=== PATIENT | male | born 1980 | race Caucasian/White ===

== ENCOUNTER 2016-08-24 15:11 | Emergency (ER) | payer OTHER, SELFPAY ==
[2016-08-24] MEDS ORDERED: Adacel (T-DAP) 0.5 ML VIAL ONE (15:17)
[2016-08-24] MEDS ORDERED: Ondansetron HCl/PF 4 MG/2 ML Vial ONE (15:17)
[2016-08-24 15:31] LABS: #Basophils 0.1 thou/uL (0.0-0.2); #Eosinphils 0.1 thou/uL (0.0-0.7); #Monocytes 0.7 thou/uL (0.11-0.59); #Neutrophils 4.4 thou/uL (1.40-6.50); %Basophils 0.9 % (0.0-1.0); %Eosinophils 0.7 % (0.0-10.0); %Lymphocytes 36.3 % (21.0-51.0); %Monocytes 8.5 % (0.0-10.0); %Neutrophils 53.7 % (42.0-75.0); Hemoglobin 14.6 g/dL (14.0-18.0); Mean Corpuscular HGB CONC 34.6 g/dL (32.0-36.0); Mean Corpuscular Volume 86.6 fl (80.0-94.0); Mean Platelet Volume 9.2 fL (7.4-10.4); Platelet Count 189 thou/uL (130-400); RBC Distribution Width 11.7 % (11.5-14.5); Red Blood Cell (RBC) Count 4.86 mill/uL (4.70-6.10); White Blood Cell (WBC) Count 8.2 thou/uL (4.8-10.8)
[2016-08-24 15:47] LABS: ALT (SGPT) 17 U/L (8-55); AST (SGOT) 27 U/L (5-34); Albumin 4.6 g/dL (3.5-5.0); Alcohol Less than 10 mg/dL (Less than 10); Alkaline Phosphatase 88 U/L (40-150); Anion Gap 15 mmol/L (10-20); BUN (Urea Nitrogen) 17 mg/dL (8.9-20.6); Bilirubin, Total 0.9 mg/dL (0.2-1.2); Calc. Creatinine Clearance 0 mL/min (70-130); Calcium 9.3 mg/dL (7.8-10.44); Carbon Dioxide 23 mmol/L (22-29); Chloride 105 mmol/L (98-107); Estimated GFR-MDRD 63; Globulin 2.7 g/dL (2.4-3.5); Glucose 110 mg/dL (70-105); Potassium 3.4 mmol/L (3.5-5.1); Protein, Total 7.3 g/dL (6.0-8.3); Sodium 140 mmol/L (136-145)
--- NOTE | 2016-08-24 16:05 | RAD ---
RIGHT HAND 3 VIEWS: HISTORY: Injury today. COMPARISON: None. FINDINGS: There is a focal flexion deformity of the 2nd digit distal interphalangeal joint with small osseous avulsion of the medial aspect of the distal phalanx base with some debris. There is also a comminut ed fracture of the middle finger middle phalanx with laceration and small adjacent radiopaque debris . IMPRESSION: 1. Fracture through the medial aspect of the base of the distal phalanx 2nd finger with adjacent ra diopaque debris. 2. Comminuted nondisplaced fracture of the middle finger middle phalanx which extends from the prox imal to the distal interphalangeal joints. POS: [facility]
[2016-08-24] MEDS ORDERED: ceFAZolin Sodium 1 GM VIAL ONE (16:21)
[2016-08-24] MEDS ORDERED: Sodium Chloride 0.9% 100 ML ONE (16:21)
== END 2016-08-24 16:26 | disposition short-term general hospital (02) ==
LOC: EDBD 15:11 → BURERS 15:11
DX: S67.190A Crushing injury of right index finger, initial encounter (principal); S67.192A Crushing injury of right middle finger, initial encounter; S62.630A Displaced fracture of distal phalanx of right index finger, initial encounter for closed fracture; S62.642A Nondisplaced fracture of proximal phalanx of right middle finger, initial encounter for closed fracture; W31.89XA Contact with other specified machinery, initial encounter; Y92.69 Other specified industrial and construction area as the place of occurrence of the external cause; Y99.0 Civilian activity done for income or pay
CPT/HCPCS: 36415; 80053; 80307; 85025; 90471; 90715; 96374; 96375; J0690; J2270; J2405; J7050